=== PATIENT | female | born 1985 ===

== ENCOUNTER 2018-09-29 20:11 | Inpatient (IN) | payer BC ==
[~2018-09-29] VITALS: Ht 160 cm; Wt 0.4 kg
[2018-09-29] MEDS ORDERED: Fish Oil 10001000 MG GT (21:10)
[2018-09-29] MEDS ORDERED: Verotin-Gr Cap1 EACH PO (21:10)
[2018-09-29] MEDS ORDERED: MAGNESIUM100 MG PO (21:11)
[2018-09-29 21:18] LABS: BASOPHILS ABSOLUTE AUTO 0.03 K/mm3 (0.00-0.23); BASOPHILS PERCENT AUTO 0 % (0-2); EOSINOPHILS PERCENT AUTO 0 % (0-6); Hematocrit 38.1 % (33.0-51.0); Hemoglobin 13.3 g/dL (11.5-16.0); IMMATURE GRAN ABSOLUTE AUTO 0.32 K/mm3 (0.00-0.10); IMMATURE GRAN PERCENT AUTO 1 % (0-1); LYMPHOCYTES ABSOLUTE AUTO 0.97 K/mm3 (0.84-5.20); LYMPHOCYTES PERCENT AUTO 4 % (21-46); MONOCYTES ABSOLUTE AUTO 1.11 K/mm3 (0.16-1.47); MONOCYTES PERCENT AUTO 4 % (4-13); Mean Corpuscular HGB 33.1 pg (26.0-34.0); Mean Corpuscular HGB Conc 34.9 g/dL (31.5-36.5); Mean Corpuscular Volume 95 fL (80-100); Mean Platelet Volume 11.1 fL (9.1-12.4); NEUTROPHILS ABSOLUTE AUTO 24.66 K/mm3 (1.96-9.15); NEUTROPHILS PERCENT AUTO 91 % (41-73); Platelet Count 235 K/mm3 (150-400); RDW Standard Deviation 44.8 fL (35.1-46.3); Red Blood Cell Count 4.02 M/mm3 (3.80-5.20); White Blood Cell Count 27.09 K/mm3 (4.00-11.30)
[2018-09-29 22:06] LABS: PCO2 Cord - Venous 34.4 mmHg (40-50); PO2 Cord - Venous 25.5 mmHg (28-32); pH Umbilical Cord - Venous 7.35 (7.26-7.35)
--- NOTE | 2018-09-29 22:08 | NUR ---
09/29/182207 Farrukh Ryan BABY BOY BORN 2149. FIRST AND SECOND 8-9. CORD SEGMENT SENT ON ICE WITH RT MIKHAIL. CORD BLOOD SENT WITH [facility] NARCISO JEFFERSON. PLACENTA TO BE SENT WITH PATIENT.
[2018-09-30 05:35] LABS: BASOPHILS ABSOLUTE AUTO 0.03 K/mm3 (0.00-0.23); BASOPHILS PERCENT AUTO 0 % (0-2); EOSINOPHILS PERCENT AUTO 0 % (0-6); Hematocrit 29.6 % (33.0-51.0); Hemoglobin 10.2 g/dL (11.5-16.0); IMMATURE GRAN ABSOLUTE AUTO 0.24 K/mm3 (0.00-0.10); IMMATURE GRAN PERCENT AUTO 1 % (0-1); LYMPHOCYTES ABSOLUTE AUTO 1.69 K/mm3 (0.84-5.20); LYMPHOCYTES PERCENT AUTO 7 % (21-46); MONOCYTES ABSOLUTE AUTO 1.97 K/mm3 (0.16-1.47); MONOCYTES PERCENT AUTO 9 % (4-13); Mean Corpuscular HGB 32.7 pg (26.0-34.0); Mean Corpuscular HGB Conc 34.5 g/dL (31.5-36.5); Mean Corpuscular Volume 95 fL (80-100); Mean Platelet Volume 10.7 fL (9.1-12.4); NEUTROPHILS ABSOLUTE AUTO 19.13 K/mm3 (1.96-9.15); NEUTROPHILS PERCENT AUTO 83 % (41-73); Platelet Count 217 K/mm3 (150-400); RDW Coefficient Variation 13.3 % (11.7-14.2); RDW Standard Deviation 46.2 fL (35.1-46.3); Red Blood Cell Count 3.12 M/mm3 (3.80-5.20); White Blood Cell Count 23.06 K/mm3 (4.00-11.30)
--- NOTE | 2018-09-30 14:33 | NUR ---
Pt stood at side of bed, ambulated a few feet w/out difficulty. Pt has very good urine output, would like to wait until later this afternoon to remove acosta and shower.
--- NOTE | 2018-09-30 19:33 | NUR ---
FAX REQUEST FOR MEDICAL RECORDS FROM [facility] IN [place] SENT. MEDICAL RECORDS WILL NOT OPEN UNTIL 829 TOMORROW. UNABLE TO GET RECORDS FROM LABOR AND DELIVERY UNIT [address] REQUIRED FOR ALL RECORDS TO GO THROUGH THEIR MEDICAL RECORDS DEPARTMENT. ORDERS GIVEN FROM DR LIU TO DRAW A PANEL.
[2018-10-01 05:39] LABS: BASOPHILS ABSOLUTE AUTO 0.04 K/mm3 (0.00-0.23); BASOPHILS PERCENT AUTO 0 % (0-2); EOSINOPHILS ABSOLUTE AUTO 0.11 K/mm3 (0.00-0.68); EOSINOPHILS PERCENT AUTO 1 % (0-6); Hematocrit 30.4 % (33.0-51.0); Hemoglobin 10.1 g/dL (11.5-16.0); IMMATURE GRAN ABSOLUTE AUTO 0.15 K/mm3 (0.00-0.10); IMMATURE GRAN PERCENT AUTO 1 % (0-1); LYMPHOCYTES ABSOLUTE AUTO 2.26 K/mm3 (0.84-5.20); LYMPHOCYTES PERCENT AUTO 14 % (21-46); MONOCYTES ABSOLUTE AUTO 1.58 K/mm3 (0.16-1.47); MONOCYTES PERCENT AUTO 10 % (4-13); Mean Corpuscular HGB 32.8 pg (26.0-34.0); Mean Corpuscular HGB Conc 33.2 g/dL (31.5-36.5); Mean Platelet Volume 10.3 fL (9.1-12.4); NEUTROPHILS PERCENT AUTO 75 % (41-73); Platelet Count 219 K/mm3 (150-400); RDW Coefficient Variation 13.9 % (11.7-14.2); Red Blood Cell Count 3.08 M/mm3 (3.80-5.20); White Blood Cell Count 16.54 K/mm3 (4.00-11.30)
[2018-10-01 05:41] LABS: Mean Corpuscular Volume 99 fL (80-100)
[2018-10-01] MEDS ORDERED: IBUP800 PO (17:04)
[2018-10-01] MEDS ORDERED: Percocet 5-3251 EACH PO (17:05)
--- NOTE | 2018-10-01 19:14 | NUR ---
REPORT TO NARCISO KRUGER
== END 2018-10-01 20:36 | disposition home or self-care (01) | DRG 788 ==
LOC: BC 20:11 → OBS 20:11 → BC 20:22
PROVIDERS: ADMIT Obstetrics & Gynecology
PROC: 10D00Z1 Extraction of Products of Conception, Low, Open Approach (ICD-10-PCS; principal; 2018-09-29 20:45)
DX: O32.9XX0 Maternal care for malpresentation of fetus, unspecified, not applicable or unspecified (principal); Z3A.39 39 weeks gestation of pregnancy; Z37.0 Single live birth
CPT/HCPCS: 36415; 82803; 85025; 86850; 86900; 86901; J0694; J1885; J2590; J2765; J7120